=== PATIENT | male | born 1935 ===

== ENCOUNTER → 2020-08-30 13:44 | Outpatient (BNVA) | payer MEDICARE, OTHER, SELFPAY | PROVIDERS: PCP Internal Medicine; Visit Provider Urology | DX: N28.1 Cyst of kidney, acquired (principal) | CPT/HCPCS: Q3014 ==

== ENCOUNTER → 2021-08-08 09:16 | Outpatient (BNVA) | payer MEDICARE, OTHER, SELFPAY | PROVIDERS: PCP Internal Medicine; Visit Provider Urology ==

== ENCOUNTER → 2021-08-21 14:58 | Outpatient (BNVA) | payer MEDICARE, OTHER, SELFPAY | PROVIDERS: PCP Internal Medicine | DX: N28.1 Cyst of kidney, acquired (principal) | CPT/HCPCS: Q3014 ==